=== PATIENT | male | born 1995 | race Caucasian/White ===

== ENCOUNTER 2017-12-18 12:51 | Outpatient (CLI) | payer BC ==
--- NOTE | 2017-12-18 15:24 | MRI ---
MRI LUMBAR SPINE WITHOUT CONTRAST: Multiplanar, multisequential imaging lumbar spine obtained. HISTORY: Lumbar radiculopathy. Low back pain with radiation to the left leg. FINDINGS: Lumbar vertebrae maintain normal height and alignment. There is mild loss of disk space at L4-5 and at L5-S1 levels. There is no vertebral body edema. No vertebral body compression. No evidence of disk abnormality is seen at T12-L1, L1-2, L2-3, or L3-4 levels. No central canal or f oraminal stenosis at any of these levels. At L4-5, mild disk bulge abuts the anterior thecal sac. This results in very mild central canal sten osis. At L5-S1, there is a focal disk protrusion paracentrally to the left which measures 1.0 cm AP dimensi on in the axial plane. This compresses the anterior thecal sac from the left and it displaces the tr aversing left S1 nerve root. This results in mild central canal stenosis. IMPRESSION: 1. Disk protrusion/herniation to the left at L5-S1 compressing the anterior thecal sac on the left a nd displacing the traversing left S1 nerve root. 2. Small diffuse bulge at L4-5 as described. POS: FLOR
== END 2017-12-18 12:52 | disposition home or self-care (01) ==
LOC: SCSMRI 12:51
PROVIDERS: ATTEND Chiropractor
DX: M51.17 Intervertebral disc disorders with radiculopathy, lumbosacral region (principal)
CPT/HCPCS: 72148